=== PATIENT | female | born 1940 | race Caucasian/White ===

== ENCOUNTER 2016-08-12 11:30 | Outpatient (CLI) | payer OTHER ==
--- NOTE | 2016-08-12 13:55 | DIAGNOSTIC IMAGING REPORT ---
PROCEDURE: MG BILATERAL SCREENING W/CAD INDICATION: Screening, personal history of cervical cancer. Family history of breast cancer in the sister. TECHNIQUE: Standard CC and MLO views bilaterally. Computer aided detection was used. COMPARISON: 08/09/2015, 08/07/2014, 07/27/2013 FINDINGS: Moderately dense fibroglandular tissue is present bilaterally. Dystrophic calcifications are present. No developing densities, areas of architectural distortion, or suspicious microcalcifications. IMPRESSION: 1. Stable mammograms without radiographic evidence of malignancy. RESULT CODE: 2- Benign findings. A. A negative report should not delay biopsy if a dominant or clinically suspicious mass is present. 10-15% of cancers are not identified by x-ray. B. A negative report may reinforce clinical impression. C. Adenosis and dense breasts may obscure an underlying neoplasm. D. False positive reports average 6-10%. E.. A yearly screening mammogram is recommended. A reminder letter will be scheduled.
== END 2016-08-12 23:00 ==
LOC: MAM SRH 11:30
DX: Z12.31 Encounter for screening mammogram for malignant neoplasm of breast (principal); Z80.3 Family history of malignant neoplasm of breast

== ENCOUNTER 2016-09-03 14:56 | Outpatient (CLI) | payer OTHER ==
--- NOTE | 2016-09-03 16:39 | DIAGNOSTIC IMAGING REPORT ---
PROCEDURE: US BILATERAL CAROTID DOPPLER INDICATION: OCCLUSION AND STENOSIS OF CAROTID ARTERY TECHNIQUE: Color Doppler duplex imaging of the carotid and vertebral vessels. COMPARISON: Carotid ultrasound dated 03/09/2016 FINDINGS: Right carotid system: Moderate plaque formation Left carotid system: Moderate plaque from the Vertebral System: Antegrade vertebral artery flow bilaterally. Right common carotid artery peak systolic velocity 92 cm/second. Right internal carotid artery peak systolic velocity 131 cm/second. Right external carotid artery peak systolic velocity 302 cm/second. Right txhqwnxo-jd-raffvl carotid artery ratio 1.4 Right vertebral artery peak systolic velocity 65 cm/second. Left common carotid artery peak systolic velocity 66 cm/second. Left internal carotid artery peak systolic velocity 226 cm/second. Left external carotid artery peak systolic velocity to 213 cm/second. Left dlouycye-im-cmhqzx carotid artery ratio 3.4 Left vertebral artery peak systolic velocity 100 cm/second. IMPRESSION: 1. Moderate plaque formation of the bifurcations bilaterally. 2. Right ICA 50-69% stenosis, unchanged 3. Left ICA 50-69% stenosis, unchanged 4. Bilateral ECA 50-99% stenoses. Velocity criteria are extrapolated from diameter data as defined by the Society of Radiologists in Ultrasound Consensus Conference, Radiology 2003; 229; 340-346.
--- NOTE | 2016-09-03 16:39 | DIAGNOSTIC IMAGING REPORT ---
PROCEDURE: US BILATERAL CAROTID DOPPLER INDICATION: OCCLUSION AND STENOSIS OF CAROTID ARTERY TECHNIQUE: Color Doppler duplex imaging of the carotid and vertebral vessels. COMPARISON: Carotid ultrasound dated 03/09/2016 FINDINGS: Right carotid system: Moderate plaque formation Left carotid system: Moderate plaque from the Vertebral System: Antegrade vertebral artery flow bilaterally. Right common carotid artery peak systolic velocity 92 cm/second. Right internal carotid artery peak systolic velocity 131 cm/second. Right external carotid artery peak systolic velocity 302 cm/second. Right rkkaxdpa-az-wxgled carotid artery ratio 1.4 Right vertebral artery peak systolic velocity 65 cm/second. Left common carotid artery peak systolic velocity 66 cm/second. Left internal carotid artery peak systolic velocity 226 cm/second. Left external carotid artery peak systolic velocity to 213 cm/second. Left ktjmwrhb-ff-wwrshg carotid artery ratio 3.4 Left vertebral artery peak systolic velocity 100 cm/second. IMPRESSION: 1. Moderate plaque formation of the bifurcations bilaterally. 2. Right ICA 50-69% stenosis, unchanged 3. Left ICA 50-69% stenosis, unchanged 4. Bilateral ECA 50-99% stenoses. Velocity criteria are extrapolated from diameter data as defined by the Society of Radiologists in Ultrasound Consensus Conference, Radiology 2003; 229; 340-346.
== END 2016-09-03 23:00 | disposition home or self-care (01) ==
LOC: US SRH 14:56
DX: I65.23 Occlusion and stenosis of bilateral carotid arteries (principal)